=== PATIENT | female | born 1935 | race Caucasian/White ===

== ENCOUNTER 2018-12-04 15:23 | Inpatient (IN) ==
[2018-12-04] MEDS ORDERED: ONDANSETRON 4 MG/2 ML VIAL IV PRN (15:24)
[2018-12-04] MEDS ORDERED: ACETAMINOPHEN 325 MG TABLET PO PRN (15:24)
[2018-12-04] MEDS ORDERED: DEXTROSE 50% 25 GM/50 ML VIAL IV PRN (15:24)
[2018-12-04] MEDS ORDERED: GLUCAGON 1 MG VIAL IM PRN (15:24)
[2018-12-04] MEDS ORDERED: ENOXAPARIN 30 MG/0.3 ML SYRINGE SUBCUT SCH (15:30)
[2018-12-04] MEDS: INSULIN LISPRO 100 UNIT/ML SUBCUT SCH ×2 (17:02→21:30)
[2018-12-04 17:09] LABS: Basophils % 0.3 % (0.0-0.8); Eosinophils % 0.6 % (0.00-10.9); Hematocrit 32.4 VOL% (35.7-47.0); Hemoglobin 9.9 GM/DL (12.0-16.0); Immature Granulocytes % 0.3 %; Immature Granulocytes Absolute 0.02 #; Lymphocytes # 1.5 10*3/uL (1.4-4.0); Lymphocytes % 22.2 % (21.3-54.2); Mean Corpuscular HGB Conc 30.6 GM/DL (32-36); Mean Corpuscular Hemoglobin 28 PG (27-34); Mean Platelet Volume 10.7 FL (9.6-12.0); Monocytes # 0.3 10*3/uL (0.11-0.8); Monocytes % 4.9 % (1.7-12.7); Neutrophils # 4.9 10*3/uL (1.4-7.4); Neutrophils % 71.7 % (38.7-73.9); Platelet Count 248 T/CUMM (130-400); Red Blood Count 3.52 MC/CUMM (3.8-5.5); White Blood Count 6.8 T/CUMM (4-12)
[2018-12-04 17:42] LABS: Alanine Aminotransferase 14 U/L (13-56); Albumin 2.7 G/DL (3.4-5.0); Alkaline Phosphatase 57 U/L (45-117); Aspartate Amino Transferase 8 U/L (0-37); Bilirubin,Total < 0.39 MG/DL (0.2-1.0); Blood Urea Nitrogen 26 MG/DL (7-18); Glucose 286 MG/DL (74-106); Osmolality,Calculated 287.8 MOS/KG (273-304); Potassium 4.1 MMOL/L (3.5-5.1); Sodium 137 MMOL/L (136-145); Total Protein 7.2 G/DL (6.4-8.3)
[2018-12-04] MEDS: CYANOCOBALAMIN 500 MCG TABLET PO SCH (18:03)
[2018-12-04] MEDS: SODIUM CHLORIDE 0.45% 1,000 ML IV SCH (18:03)
[2018-12-04 18:50] LABS: Apearance,Urine CLOUDY (Clear); Bilirubin,Urine Negative (Negative); Blood, Urine Negative (Negative); Glucose,Urine (UA) 150 mg/dL (Negative); Ketones,Urine Negative (Negative); Mucus,Urine Occasional /LPF (Occasional); Nitrite,Urine Negative (Negative); Protein,Urine Negative; RBC,Urine 4 /HPF (0-4); Squamous Epithelial Cell,Urine Occasional /HPF (0-10); Urine Color Yellow (Yellow); Urine Specific Gravity 1.016 (1.001-1.035); Urine Urobilinogen < 2.0 EU/DL (0.2-1.0); WBC,Urine 141 /HPF (0-6)
[2018-12-04] MEDS ORDERED: MAGNESIUM OXIDE 400 MG TABLET PO SCH (21:00)
[2018-12-04] MEDS ORDERED: NITROGLYCERIN 0.2 MG/HR PATCH TRANSDERM PRN (21:00)
[2018-12-04] MEDS: ATORVASTATIN 40 MG TABLET PO SCH (21:23)
[2018-12-04] MEDS: CARVEDILOL 6.25 MG TABLET PO SCH (21:23)
[2018-12-04] MEDS: GLIMEPIRIDE 4 MG TABLET PO SCH (21:24)
[2018-12-05 05:30] LABS: Risk Ratio 1.8; VLDL CHOLESTEROL 35.2 MG/DL
[2018-12-05] MEDS: INSULIN LISPRO 100 UNIT/ML SUBCUT SCH ×4 (08:14→21:16)
[2018-12-05] MEDS ORDERED: DILTIAZEM CD 180 MG CAPSULE PO SCH (09:00)
[2018-12-05] MEDS ORDERED: PANTOPRAZOLE 40 MG TABLET PO SCH (09:00)
[2018-12-05] MEDS ORDERED: ESTROGENS (CONJ) 0.625 MG TABLET PO SCH (09:00)
[2018-12-05] MEDS: DIPHENOXYLATE/ATROPINE 2.5-0.025 MG TABLET PO PRN ×2 (09:08→21:13)
[2018-12-05] MEDS: CARVEDILOL 6.25 MG TABLET PO SCH ×2 (09:08→21:12)
[2018-12-05] MEDS: GLIMEPIRIDE 4 MG TABLET PO SCH ×2 (09:08→21:12)
[2018-12-05] MEDS: RIVAROXABAN 15 MG TABLET PO SCH (09:08)
[2018-12-05] MEDS: MAGNESIUM OXIDE 400 MG TABLET PO SCH ×2 (12:01→21:11)
[2018-12-05] MEDS: CYANOCOBALAMIN 500 MCG TABLET PO SCH (16:33)
[2018-12-05] MEDS ORDERED: cefTRIAXone 1,000 MG in SYRINGE 1 EACH IV SCH (18:00)
[2018-12-05] MEDS: ATORVASTATIN 40 MG TABLET PO SCH (21:11)
[2018-12-05] MEDS: SODIUM CHLORIDE 0.45% 1,000 ML IV SCH (21:17)
[2018-12-06 08:15] VITALS: BP 143/70
[2018-12-06] MEDS: INSULIN LISPRO 100 UNIT/ML SUBCUT SCH (09:37)
[2018-12-06] MEDS: RIVAROXABAN 15 MG TABLET PO SCH (09:38)
== END 2018-12-06 09:20 | disposition home or self-care (01) | DRG 948 ==
LOC: N.2E 15:48
PROVIDERS: ADMIT Family Medicine; ATTEND Family Medicine

== ENCOUNTER 2019-10-28 21:56 | Inpatient (IN) ==
[2019-10-28] MEDS ORDERED: PANTOPRAZOLE 40 MG VIAL IV STA (22:32)
[2019-10-28] MEDS ORDERED: SODIUM CHLORIDE 0.9% 500 ML IV STA (22:32)
[2019-10-28] MEDS ORDERED: ONDANSETRON 4 MG/2 ML VIAL IV STA (22:32)
[2019-10-28 22:41] LABS: Basophils % 0.2 % (0.0-0.8); Eosinophils % 0.4 % (0.00-10.9); Hematocrit 34.5 VOL% (35.7-47.0); Hemoglobin 10.9 GM/DL (12.0-16.0); Immature Granulocytes % 0.7 %; Immature Granulocytes Absolute 0.06 #; Lymphocytes # 1.1 10*3/uL (1.4-4.0); Lymphocytes % 13.1 % (21.3-54.2); Mean Corpuscular HGB Conc 31.6 GM/DL (32-36); Mean Corpuscular Volume 85.4 FL (87-102); Mean Platelet Volume 10.8 FL (9.6-12.0); Monocytes % 6.4 % (1.7-12.7); Neutrophils % 79.2 % (38.7-73.9); Platelet Count 219 T/CUMM (130-400); Red Blood Count 4.04 MC/CUMM (3.8-5.5); Red Cell Distribution Width 13.6 % (9.3-17.3); White Blood Count 8.6 T/CUMM (4-12)
[2019-10-28 22:46] LABS: INR 1.3; PT Patient Result 13.7 SECS (9.6-12.2)
[2019-10-28 22:55] LABS: Alanine Aminotransferase < 6 U/L (13-56); Albumin 2.6 G/DL (3.4-5.0); Alkaline Phosphatase 51 U/L (45-117); Aspartate Amino Transferase 11 U/L (0-37); Blood Urea Nitrogen 28 MG/DL (7-18); Calcium 8.6 MG/DL (8.5-10.1); Estimated Glom Filtration Rate 32 ML/MIN; Glucose 183 MG/DL (74-106); Osmolality,Calculated 287.5 MOS/KG (273-304); Total Protein 6.7 G/DL (6.4-8.3)
[2019-10-28] MEDS ORDERED: MAGNESIUM SULF RIDER 2 GM in PREMIX 1 EACH IV STA (23:05)
[2019-10-29] MEDS ORDERED: GLUCAGON 1 MG VIAL IM PRN (01:48)
[2019-10-29] MEDS ORDERED: DEXTROSE 50% 25 GM/50 ML VIAL IV PRN (01:48)
[2019-10-29] MEDS ORDERED: ONDANSETRON 4 MG/2 ML VIAL IV PRN (01:48)
[2019-10-29] MEDS: SODIUM CHLORIDE 0.9% 1,000 ML IV SCH ×3 (02:28→22:53)
[2019-10-29] MEDS: CIPROFLOXACIN INJ 400 MG in PREMIX 1 EACH IV SCH ×2 (02:29→15:07)
[2019-10-29] MEDS: metroNIDAZOLE INJ 500 MG in PREMIX 1 EACH IV SCH ×3 (03:42→18:55)
[2019-10-29] MEDS: INSULIN REGULAR 100 UNIT/ML SUBCUT SCH ×4 (06:26→23:47)
[2019-10-29 07:11] LABS: Basophils % 0.1 % (0.0-0.8); Eosinophils # 0.1 10*3/uL (0.0-0.87); Eosinophils % 0.7 % (0.00-10.9); Hematocrit 31.3 VOL% (35.7-47.0); Immature Granulocytes % 0.4 %; Immature Granulocytes Absolute 0.03 #; Lymphocytes # 1.5 10*3/uL (1.4-4.0); Lymphocytes % 21.3 % (21.3-54.2); Mean Corpuscular HGB Conc 31.9 GM/DL (32-36); Mean Corpuscular Volume 84.6 FL (87-102); Mean Platelet Volume 10.5 FL (9.6-12.0); Monocytes % 8.6 % (1.7-12.7); Neutrophils % 68.9 % (38.7-73.9); Platelet Count 188 T/CUMM (130-400); Red Cell Distribution Width 13.8 % (9.3-17.3)
[2019-10-29 07:31] LABS: Alanine Aminotransferase < 6 U/L (13-56); Albumin 2.3 G/DL (3.4-5.0); Alkaline Phosphatase 47 U/L (45-117); Aspartate Amino Transferase 7 U/L (0-37); Bilirubin,Total < 0.39 MG/DL (0.2-1.0); Blood Urea Nitrogen 21 MG/DL (7-18); Calcium 8.4 MG/DL (8.5-10.1); Estimated Glom Filtration Rate 38 ML/MIN; Glucose 164 MG/DL (74-106); Osmolality,Calculated 285.4 MOS/KG (273-304)
[2019-10-29] MEDS ORDERED: NITROGLYCERIN 0.2 MG/HR PATCH TRANSDERM PRN (08:28)
[2019-10-29] MEDS ORDERED: DIPHENOXYLATE/ATROPINE 2.5-0.025 MG TABLET PO PRN (08:28)
[2019-10-29 09:00] LABS: Hematocrit 31.6 VOL% (35.7-47.0); Hemoglobin 10.2 GM/DL (12.0-16.0)
[2019-10-29] MEDS ORDERED: CARBIDOPA LEVODOPA PO SCH (09:00)
[2019-10-29] MEDS: CHOLECALCIFEROL 1,000 UNIT TABLET PO SCH (09:35)
[2019-10-29] MEDS: DILTIAZEM CD 180 MG CAPSULE PO SCH (09:35)
[2019-10-29] MEDS: PANTOPRAZOLE 40 MG VIAL IV SCH (09:36)
[2019-10-29] MEDS: MAGNESIUM OXIDE 400 MG TABLET PO SCH ×2 (09:36→20:43)
[2019-10-29] MEDS: ESTROGENS (CONJ) 0.625 MG TABLET PO SCH (09:39)
[2019-10-29] MEDS: POTASSIUM CHLORIDE RIDER 10 MEQ in PREMIX 1 EACH IV PRN ×5 (09:43→22:53)
[2019-10-29] MEDS: ASCORBIC ACID 500 MG TABLET PO SCH ×2 (14:21→20:43)
[2019-10-29 15:30] LABS: Hematocrit 32.2 VOL% (35.7-47.0); Hemoglobin 10.2 GM/DL (12.0-16.0)
[2019-10-29] MEDS: carvediloL 6.25 MG TABLET PO SCH (16:29)
[2019-10-29] MEDS: CYANOCOBALAMIN 500 MCG TABLET PO SCH (20:43)
[2019-10-29] MEDS: ATORVASTATIN 40 MG TABLET PO SCH (20:43)
[2019-10-29 22:13] LABS: Hematocrit 30.4 VOL% (35.7-47.0); Hemoglobin 9.6 GM/DL (12.0-16.0)
[2019-10-30] MEDS: CIPROFLOXACIN INJ 400 MG in PREMIX 1 EACH IV SCH ×2 (01:44→14:52)
[2019-10-30] MEDS: metroNIDAZOLE INJ 500 MG in PREMIX 1 EACH IV SCH ×3 (03:30→18:23)
[2019-10-30 04:09] LABS: Hematocrit 28.8 VOL% (35.7-47.0); Hemoglobin 9.2 GM/DL (12.0-16.0)
[2019-10-30] MEDS: INSULIN REGULAR 100 UNIT/ML SUBCUT SCH ×4 (06:45→23:10)
[2019-10-30] MEDS: SODIUM CHLORIDE 0.9% 1,000 ML IV SCH ×3 (06:48→23:18)
[2019-10-30] MEDS: PANTOPRAZOLE 40 MG VIAL IV SCH (09:40)
[2019-10-30] MEDS: ESTROGENS (CONJ) 0.625 MG TABLET PO SCH (09:40)
[2019-10-30] MEDS: DILTIAZEM CD 180 MG CAPSULE PO SCH (09:41)
[2019-10-30] MEDS: MAGNESIUM OXIDE 400 MG TABLET PO SCH ×2 (09:41→20:42)
[2019-10-30] MEDS: ASCORBIC ACID 500 MG TABLET PO SCH ×2 (09:41→20:42)
[2019-10-30] MEDS: CHOLECALCIFEROL 1,000 UNIT TABLET PO SCH (09:41)
[2019-10-30] MEDS: CARBIDOPA LEVODOPA PO SCH ×3 (09:42→18:22)
[2019-10-30] MEDS: carvediloL 6.25 MG TABLET PO SCH ×2 (09:42→18:21)
[2019-10-30] MEDS: FLECAINIDE 50 MG TABLET PO SCH ×2 (09:42→20:42)
[2019-10-30] MEDS: ATORVASTATIN 40 MG TABLET PO SCH (20:42)
[2019-10-30] MEDS: CYANOCOBALAMIN 500 MCG TABLET PO SCH (20:49)
[2019-10-31] MEDS: CIPROFLOXACIN INJ 400 MG in PREMIX 1 EACH IV SCH (01:35)
[2019-10-31] MEDS: metroNIDAZOLE INJ 500 MG in PREMIX 1 EACH IV SCH ×2 (02:40→10:32)
[2019-10-31] MEDS: INSULIN REGULAR 100 UNIT/ML SUBCUT SCH (05:25)
[2019-10-31 06:38] LABS: Hematocrit 31.8 VOL% (35.7-47.0); Hemoglobin 10.1 GM/DL (12.0-16.0)
[2019-10-31 07:02] LABS: Calcium 8.4 MG/DL (8.5-10.1); Osmolality,Calculated 284.3 MOS/KG (273-304)
[2019-10-31] MEDS: carvediloL 6.25 MG TABLET PO SCH (08:17)
[2019-10-31] MEDS: CARBIDOPA LEVODOPA PO SCH (08:18)
[2019-10-31] MEDS: DILTIAZEM CD 180 MG CAPSULE PO SCH (08:19)
[2019-10-31] MEDS: MAGNESIUM OXIDE 400 MG TABLET PO SCH (08:23)
[2019-10-31] MEDS: ESTROGENS (CONJ) 0.625 MG TABLET PO SCH (08:23)
[2019-10-31] MEDS: PANTOPRAZOLE 40 MG VIAL IV SCH (08:23)
[2019-10-31] MEDS: ASCORBIC ACID 500 MG TABLET PO SCH (08:24)
[2019-10-31] MEDS: FLECAINIDE 50 MG TABLET PO SCH (08:24)
[2019-10-31 08:25] VITALS: BP 127/61
[2019-10-31] MEDS: CHOLECALCIFEROL 1,000 UNIT TABLET PO SCH (08:25)
[2019-10-31] MEDS ORDERED: INFLUENZA VIRUS VACCINE 0.5 ML SYRINGE IM ONE (10:30)
== END 2019-10-31 11:13 | disposition home or self-care (01) | DRG 378 ==
LOC: EDBD → EDUNIT# → N.ED 21:56 → N.EDINP 10-29 00:22 → N.5E 10-29 00:40
PROVIDERS: ADMIT Family Medicine; ATTEND Family Medicine

== ENCOUNTER 2021-04-20 13:14 | Inpatient (IN) ==
[2021-04-20 14:05] LABS: Basophils % 0.3 % (0.0-0.8); Eosinophils % 0.1 % (0.00-10.9); Hematocrit 37.3 VOL% (35.7-47.0); Hemoglobin 12.1 GM/DL (12.0-16.0); Immature Granulocytes % 0.3 %; Immature Granulocytes Absolute 0.02 #; Lymphocytes % 14.1 % (21.3-54.2); Mean Corpuscular HGB Conc 32.4 GM/DL (32-36); Mean Corpuscular Volume 91.4 FL (87-102); Mean Platelet Volume 10.4 FL (9.6-12.0); Monocytes % 6.3 % (1.7-12.7); Neutrophils % 78.9 % (38.7-73.9); Platelet Count 210 T/CUMM (130-400); Red Blood Count 4.08 MC/CUMM (3.8-5.5); Red Cell Distribution Width 12.4 % (9.3-17.3); White Blood Count 7.1 T/CUMM (4-12)
[2021-04-20 14:19] LABS: Alanine Aminotransferase < 9 U/L (13-56); Albumin 3.3 G/DL (3.4-5.0); Alkaline Phosphatase 59 U/L (45-117); Aspartate Amino Transferase 13 U/L (0-37); Blood Urea Nitrogen 33 MG/DL (7-18); Calcium 10.8 MG/DL (8.5-10.1); Carbon Dioxide 26 MMOL/L (21-32); Estimated Glom Filtration Rate 27 ML/MIN; Glucose 208 MG/DL (74-106); Osmolality,Calculated 289.5 MOS/KG (273-304); Potassium 4.6 MMOL/L (3.5-5.1); Sodium 139 MMOL/L (136-145); Total Protein 6.9 G/DL (6.4-8.2)
[2021-04-20] MEDS ORDERED: ONDANSETRON 4 MG/2 ML VIAL IV STA (14:30)
[2021-04-20] MEDS ORDERED: MECLIZINE 12.5 MG TABLET PO STA (14:30)
[2021-04-20] MEDS ORDERED: SODIUM CHLORIDE 0.9% 1,000 ML IV STA (14:30)
[2021-04-20 14:48] LABS: Bilirubin,Urine Negative (Negative); Blood, Urine Negative (Negative); Glucose,Urine (UA) Negative (Negative); Hyaline Casts,Urine 4 /LPF (0-3); Ketones,Urine 5 mg/dL (Negative); Mucus,Urine Occasional /LPF (Occasional); Nitrite,Urine Negative (Negative); Protein,Urine 100 MG/DL; RBC,Urine 12 /HPF (0-4); Squamous Epithelial Cell,Urine Few /HPF (0-10); Urine Appearance Slightly Hazy (Clear); Urine Color Yellow (Yellow); Urine Specific Gravity 1.011 (1.001-1.035); Urine Urobilinogen < 2.0 EU/DL (0.2-1.0)
[2021-04-20] MEDS ORDERED: MECLIZINE 25 MG TABLET ONE (15:03)
[2021-04-20] MEDS ORDERED: FLUCONAZOLE 100 MG TABLET PO STA (15:43)
[2021-04-20] MEDS ORDERED: ONDANSETRON 4 MG/2 ML VIAL IV PRN (16:11)
[2021-04-20] MEDS ORDERED: DIAZEPAM 2 MG TABLET PO PRN (17:11)
[2021-04-20] MEDS ORDERED: DIPHENOXYLATE/ATROPINE 2.5-0.025 MG TABLET PO PRN (17:12)
[2021-04-20] MEDS: SODIUM CHLORIDE 0.9% 1,000 ML IV SCH (17:29)
[2021-04-20] MEDS: cefTRIAXone 1,000 MG in SODIUM CHLORIDE 0.9% 100 ML IV SCH (18:22)
[2021-04-20] MEDS: ASCORBIC ACID 500 MG TABLET PO SCH (20:43)
[2021-04-20] MEDS: CYANOCOBALAMIN 500 MCG TABLET PO SCH (20:43)
[2021-04-20] MEDS: GLIMEPIRIDE 4 MG TABLET PO SCH (20:43)
[2021-04-20] MEDS: CARBIDOPA LEVODOPA PO SCH (20:53)
[2021-04-20] MEDS: DOCUSATE SODIUM 100 MG CAPSULE PO SCH (20:53)
[2021-04-20] MEDS: MAGNESIUM OXIDE 400 MG TABLET PO SCH (20:54)
[2021-04-21] MEDS: MICONAZOLE 2% VAG CREAM 45 GM TUBE VAG SCH ×2 (00:01→21:14)
[2021-04-21] MEDS: SODIUM CHLORIDE 0.9% 1,000 ML IV SCH ×4 (00:05→19:23)
[2021-04-21] MEDS: MAGNESIUM OXIDE 400 MG TABLET PO SCH ×2 (09:32→21:14)
[2021-04-21] MEDS: CHOLECALCIFEROL 1,000 UNIT TABLET PO SCH (09:32)
[2021-04-21] MEDS: ASCORBIC ACID 500 MG TABLET PO SCH ×2 (09:33→21:13)
[2021-04-21] MEDS: carvediloL 6.25 MG TABLET PO SCH ×2 (09:33→16:42)
[2021-04-21] MEDS: DILTIAZEM CD 180 MG CAPSULE PO SCH (09:33)
[2021-04-21] MEDS ORDERED: NITROGLYCERIN SL 0.4 MG TABLET SL PRN (09:33)
[2021-04-21] MEDS: PHENAZOPYRIDINE 95 MG TABLET PO SCH ×3 (09:33→16:46)
[2021-04-21] MEDS: GLIMEPIRIDE 4 MG TABLET PO SCH ×2 (09:33→16:42)
[2021-04-21] MEDS: PANTOPRAZOLE 40 MG TABLET PO SCH (09:33)
[2021-04-21] MEDS ORDERED: DILTIAZEM 50 MG/10 ML VIAL IV ONE (10:04)
[2021-04-21] MEDS ORDERED: DILTIAZEM INJ 100 MG in SODIUM CHLORIDE 0.9% 100 ML IV SCH (10:30)
[2021-04-21 10:33] LABS: Basophils % 0.2 % (0.0-0.8); Eosinophils # 0.1 10*3/uL (0.0-0.87); Hemoglobin 11.2 GM/DL (12.0-16.0); Immature Granulocytes % 0.4 %; Immature Granulocytes Absolute 0.03 #; Lymphocytes # 2.4 10*3/uL (1.4-4.0); Lymphocytes % 28.5 % (21.3-54.2); Mean Corpuscular Volume 92.1 FL (87-102); Mean Platelet Volume 10.4 FL (9.6-12.0); Monocytes % 9.6 % (1.7-12.7); Neutrophils % 60.3 % (38.7-73.9); Platelet Count 198 T/CUMM (130-400); Red Cell Distribution Width 12.4 % (9.3-17.3); White Blood Count 8.3 T/CUMM (4-12)
[2021-04-21] MEDS ORDERED: MAGNESIUM SULF RIDER 4 GM/100 ML PREMIX IV PRN (10:42)
[2021-04-21] MEDS ORDERED: MAGNESIUM SULF RIDER 2 GM/50 ML PREMIX IV PRN (10:42)
[2021-04-21] MEDS: PREMARIN 0.625 MG PO SCH (10:49)
[2021-04-21] MEDS: DOCUSATE SODIUM 100 MG CAPSULE PO SCH ×2 (10:49→21:14)
[2021-04-21 10:50] LABS: Calcium 9.5 MG/DL (8.5-10.1); Potassium 3.8 MMOL/L (3.5-5.1)
[2021-04-21] MEDS: CARBIDOPA LEVODOPA PO SCH ×3 (11:26→16:42)
[2021-04-21] MEDS: cefTRIAXone 1,000 MG in SODIUM CHLORIDE 0.9% 100 ML IV SCH (16:47)
[2021-04-21] MEDS ORDERED: AMIODARONE 200 MG TABLET PO SCH (21:00)
[2021-04-21] MEDS: CYANOCOBALAMIN 500 MCG TABLET PO SCH (21:13)
[2021-04-21] MEDS: ATORVASTATIN 40 MG TABLET PO SCH (21:14)
[2021-04-22] MEDS: SODIUM CHLORIDE 0.9% 1,000 ML IV SCH ×2 (03:23→17:35)
[2021-04-22 05:01] LABS: Basophils % 0.1 % (0.0-0.8); Eosinophils # 0.1 10*3/uL (0.0-0.87); Eosinophils % 1.3 % (0.00-10.9); Hematocrit 30.9 VOL% (35.7-47.0); Hemoglobin 10.2 GM/DL (12.0-16.0); Immature Granulocytes % 0.4 %; Immature Granulocytes Absolute 0.03 #; Lymphocytes # 1.4 10*3/uL (1.4-4.0); Lymphocytes % 19.3 % (21.3-54.2); Mean Platelet Volume 9.9 FL (9.6-12.0); Monocytes % 10.9 % (1.7-12.7); Platelet Count 152 T/CUMM (130-400); Red Blood Count 3.36 MC/CUMM (3.8-5.5); Red Cell Distribution Width 12.4 % (9.3-17.3); White Blood Count 7.5 T/CUMM (4-12)
[2021-04-22 05:07] LABS: Calcium 8.7 MG/DL (8.5-10.1); Potassium 3.4 MMOL/L (3.5-5.1)
[2021-04-22] MEDS ORDERED: POTASSIUM CHLORIDE 20 MEQ TABLET PO PRN (06:36)
[2021-04-22] MEDS: carvediloL 6.25 MG TABLET PO SCH ×2 (08:55→17:35)
[2021-04-22] MEDS: CARBIDOPA LEVODOPA PO SCH ×3 (08:55→17:39)
[2021-04-22] MEDS: GLIMEPIRIDE 4 MG TABLET PO SCH ×2 (08:55→17:35)
[2021-04-22] MEDS: PHENAZOPYRIDINE 95 MG TABLET PO SCH ×3 (08:55→17:36)
[2021-04-22] MEDS: MAGNESIUM OXIDE 400 MG TABLET PO SCH ×2 (08:56→20:45)
[2021-04-22] MEDS: DILTIAZEM CD 180 MG CAPSULE PO SCH (08:56)
[2021-04-22] MEDS: ASCORBIC ACID 500 MG TABLET PO SCH ×2 (08:57→20:46)
[2021-04-22] MEDS: PANTOPRAZOLE 40 MG TABLET PO SCH (08:57)
[2021-04-22] MEDS: CHOLECALCIFEROL 1,000 UNIT TABLET PO SCH (08:58)
[2021-04-22] MEDS: PREMARIN 0.625 MG PO SCH (09:47)
[2021-04-22] MEDS: DOCUSATE SODIUM 100 MG CAPSULE PO SCH ×2 (09:47→20:45)
[2021-04-22] MEDS: POTASSIUM CHLORIDE 20 MEQ TABLET PO PRN ×3 (09:54→20:45)
[2021-04-22] MEDS: ACETAMINOPHEN 325 MG TABLET PO PRN ×2 (10:00→21:42)
[2021-04-22] MEDS ORDERED: TUBERCULIN SKIN TEST 0.1 ML SYRINGE INTRADERM ONE (12:30)
[2021-04-22] MEDS ORDERED: INSULIN LISPRO 100 UNIT/ML SUBCUT ONE (16:47)
[2021-04-22] MEDS: metFORMIN 500 MG TABLET PO SCH (16:56)
[2021-04-22] MEDS: cefTRIAXone 1,000 MG in SODIUM CHLORIDE 0.9% 100 ML IV SCH (17:36)
[2021-04-22] MEDS: CYANOCOBALAMIN 500 MCG TABLET PO SCH (20:45)
[2021-04-22] MEDS: ATORVASTATIN 40 MG TABLET PO SCH (20:46)
[2021-04-22] MEDS: MICONAZOLE 2% VAG CREAM 45 GM TUBE VAG SCH (20:51)
[2021-04-23] MEDS: SODIUM CHLORIDE 0.9% 1,000 ML IV SCH ×5 (02:12→20:20)
[2021-04-23 04:42] LABS: Basophils % 0.2 % (0.0-0.8); Eosinophils # 0.1 10*3/uL (0.0-0.87); Eosinophils % 1.1 % (0.00-10.9); Hemoglobin 9.2 GM/DL (12.0-16.0); Immature Granulocytes % 0.7 %; Immature Granulocytes Absolute 0.06 #; Lymphocytes # 1.8 10*3/uL (1.4-4.0); Lymphocytes % 20.9 % (21.3-54.2); Mean Corpuscular HGB Conc 31.7 GM/DL (32-36); Mean Corpuscular Volume 93.5 FL (87-102); Mean Platelet Volume 10.3 FL (9.6-12.0); Monocytes % 8.3 % (1.7-12.7); Neutrophils % 68.8 % (38.7-73.9); Platelet Count 139 T/CUMM (130-400); Red Cell Distribution Width 12.5 % (9.3-17.3); White Blood Count 8.7 T/CUMM (4-12)
[2021-04-23 05:07] LABS: Calcium 8.1 MG/DL (8.5-10.1); Osmolality,Calculated 283.3 MOS/KG (273-304); Potassium 4.2 MMOL/L (3.5-5.1)
[2021-04-23] MEDS: PREMARIN 0.625 MG PO SCH (09:00)
[2021-04-23] MEDS: carvediloL 6.25 MG TABLET PO SCH ×2 (09:49→17:22)
[2021-04-23] MEDS: GLIMEPIRIDE 4 MG TABLET PO SCH ×2 (09:49→17:22)
[2021-04-23] MEDS: PHENAZOPYRIDINE 95 MG TABLET PO SCH ×3 (09:50→17:22)
[2021-04-23] MEDS: metFORMIN 500 MG TABLET PO SCH ×2 (09:50→17:22)
[2021-04-23] MEDS: MAGNESIUM OXIDE 400 MG TABLET PO SCH ×2 (09:51→20:23)
[2021-04-23] MEDS: DOCUSATE SODIUM 100 MG CAPSULE PO SCH ×2 (09:51→20:23)
[2021-04-23] MEDS: AMIODARONE 200 MG TABLET PO SCH (09:51)
[2021-04-23] MEDS: DILTIAZEM CD 180 MG CAPSULE PO SCH (09:51)
[2021-04-23] MEDS: PANTOPRAZOLE 40 MG TABLET PO SCH (09:52)
[2021-04-23] MEDS: CHOLECALCIFEROL 1,000 UNIT TABLET PO SCH (09:52)
[2021-04-23] MEDS: ASCORBIC ACID 500 MG TABLET PO SCH ×2 (09:52→20:23)
[2021-04-23] MEDS: CARBIDOPA LEVODOPA PO SCH ×3 (09:53→17:23)
[2021-04-23] MEDS: cefTRIAXone 1,000 MG in SODIUM CHLORIDE 0.9% 100 ML IV SCH (17:24)
[2021-04-23] MEDS: ATORVASTATIN 40 MG TABLET PO SCH (20:23)
[2021-04-23] MEDS: MICONAZOLE 2% VAG CREAM 45 GM TUBE VAG SCH (20:24)
[2021-04-23] MEDS: CYANOCOBALAMIN 500 MCG TABLET PO SCH (20:25)
[2021-04-24] MEDS: SODIUM CHLORIDE 0.9% 1,000 ML IV SCH (03:53)
[2021-04-24 05:36] LABS: Basophils % 0.2 % (0.0-0.8); Eosinophils # 0.2 10*3/uL (0.0-0.87); Eosinophils % 1.7 % (0.00-10.9); Hemoglobin 8.8 GM/DL (12.0-16.0); Immature Granulocytes % 0.9 %; Immature Granulocytes Absolute 0.08 #; Lymphocytes # 1.4 10*3/uL (1.4-4.0); Lymphocytes % 14.9 % (21.3-54.2); Mean Corpuscular HGB Conc 31.4 GM/DL (32-36); Mean Corpuscular Volume 94.3 FL (87-102); Monocytes % 6.8 % (1.7-12.7); Neutrophils % 75.5 % (38.7-73.9); Platelet Count 144 T/CUMM (130-400); Red Blood Count 2.97 MC/CUMM (3.8-5.5); Red Cell Distribution Width 12.9 % (9.3-17.3); White Blood Count 9.3 T/CUMM (4-12)
[2021-04-24 05:55] LABS: Calcium 8.4 MG/DL (8.5-10.1); Potassium 4.2 MMOL/L (3.5-5.1)
[2021-04-24] MEDS ORDERED: FUROSEMIDE 40 MG/4 ML VIAL IV ONE (08:12)
[2021-04-24] MEDS: AMIODARONE 200 MG TABLET PO SCH (10:06)
[2021-04-24] MEDS: CHOLECALCIFEROL 1,000 UNIT TABLET PO SCH (10:06)
[2021-04-24] MEDS: carvediloL 6.25 MG TABLET PO SCH ×2 (10:06→17:00)
[2021-04-24] MEDS: DILTIAZEM CD 180 MG CAPSULE PO SCH (10:06)
[2021-04-24] MEDS: metFORMIN 500 MG TABLET PO SCH ×2 (10:06→17:00)
[2021-04-24] MEDS: GLIMEPIRIDE 4 MG TABLET PO SCH ×2 (10:07→17:00)
[2021-04-24] MEDS: DOCUSATE SODIUM 100 MG CAPSULE PO SCH ×2 (10:07→21:30)
[2021-04-24] MEDS: MAGNESIUM OXIDE 400 MG TABLET PO SCH ×2 (10:07→21:31)
[2021-04-24] MEDS: PHENAZOPYRIDINE 95 MG TABLET PO SCH ×3 (10:07→17:00)
[2021-04-24] MEDS: ASCORBIC ACID 500 MG TABLET PO SCH ×2 (10:07→21:31)
[2021-04-24] MEDS: PANTOPRAZOLE 40 MG TABLET PO SCH (10:07)
[2021-04-24] MEDS: CARBIDOPA LEVODOPA PO SCH ×3 (10:08→16:00)
[2021-04-24] MEDS: SODIUM CHLORIDE 0.45% 1,000 ML IV SCH (10:10)
[2021-04-24] MEDS: PREMARIN 0.625 MG PO SCH (10:29)
[2021-04-24] MEDS: cefTRIAXone 1,000 MG in SODIUM CHLORIDE 0.9% 100 ML IV SCH (17:00)
[2021-04-24] MEDS: CYANOCOBALAMIN 500 MCG TABLET PO SCH (21:30)
[2021-04-24] MEDS: MICONAZOLE 2% VAG CREAM 45 GM TUBE VAG SCH (21:32)
[2021-04-24] MEDS: ATORVASTATIN 40 MG TABLET PO SCH (21:32)
[2021-04-25] MEDS: SODIUM CHLORIDE 0.45% 1,000 ML IV SCH (03:32)
[2021-04-25 07:19] LABS: Basophils % 0.1 % (0.0-0.8); Eosinophils # 0.2 10*3/uL (0.0-0.87); Eosinophils % 2.2 % (0.00-10.9); Hematocrit 28.4 VOL% (35.7-47.0); Hemoglobin 8.9 GM/DL (12.0-16.0); Immature Granulocytes % 0.7 %; Immature Granulocytes Absolute 0.05 #; Lymphocytes # 1.4 10*3/uL (1.4-4.0); Lymphocytes % 19.3 % (21.3-54.2); Mean Corpuscular HGB Conc 31.3 GM/DL (32-36); Mean Corpuscular Volume 94.4 FL (87-102); Mean Platelet Volume 10.2 FL (9.6-12.0); Monocytes % 6.9 % (1.7-12.7); Neutrophils % 70.8 % (38.7-73.9); Platelet Count 164 T/CUMM (130-400); Red Blood Count 3.01 MC/CUMM (3.8-5.5); Red Cell Distribution Width 12.7 % (9.3-17.3); White Blood Count 7.4 T/CUMM (4-12)
[2021-04-25 07:34] LABS: Calcium 8.5 MG/DL (8.5-10.1); Potassium 3.9 MMOL/L (3.5-5.1)
[2021-04-25] MEDS: GLIMEPIRIDE 4 MG TABLET PO SCH ×2 (09:06→18:08)
[2021-04-25] MEDS: CHOLECALCIFEROL 1,000 UNIT TABLET PO SCH (09:06)
[2021-04-25] MEDS: carvediloL 6.25 MG TABLET PO SCH ×2 (09:07→18:08)
[2021-04-25] MEDS: AMIODARONE 200 MG TABLET PO SCH (09:07)
[2021-04-25] MEDS: PANTOPRAZOLE 40 MG TABLET PO SCH (09:08)
[2021-04-25] MEDS: DOCUSATE SODIUM 100 MG CAPSULE PO SCH ×2 (09:08→20:55)
[2021-04-25] MEDS: MAGNESIUM OXIDE 400 MG TABLET PO SCH ×2 (09:09→20:56)
[2021-04-25] MEDS: DILTIAZEM CD 180 MG CAPSULE PO SCH (09:09)
[2021-04-25] MEDS: PHENAZOPYRIDINE 95 MG TABLET PO SCH ×3 (09:10→18:08)
[2021-04-25] MEDS: CARBIDOPA LEVODOPA PO SCH ×3 (09:10→18:09)
[2021-04-25] MEDS: ASCORBIC ACID 500 MG TABLET PO SCH ×2 (09:10→20:56)
[2021-04-25] MEDS: metFORMIN 500 MG TABLET PO SCH ×2 (09:10→18:09)
[2021-04-25] MEDS: PREMARIN 0.625 MG PO SCH (09:11)
[2021-04-25 11:00] LABS: Basophils % 0.2 % (0.0-0.8); Eosinophils # 0.2 10*3/uL (0.0-0.87); Eosinophils % 2.7 % (0.00-10.9); Hematocrit 27.2 VOL% (35.7-47.0); Hemoglobin 8.9 GM/DL (12.0-16.0); Immature Granulocytes % 0.5 %; Immature Granulocytes Absolute 0.03 #; Lymphocytes # 1.1 10*3/uL (1.4-4.0); Lymphocytes % 17.1 % (21.3-54.2); Mean Corpuscular HGB Conc 32.7 GM/DL (32-36); Mean Corpuscular Volume 91.9 FL (87-102); Mean Platelet Volume 9.7 FL (9.6-12.0); Neutrophils % 72.5 % (38.7-73.9); Platelet Count 156 T/CUMM (130-400); Red Blood Count 2.96 MC/CUMM (3.8-5.5); Red Cell Distribution Width 12.7 % (9.3-17.3); White Blood Count 6.3 T/CUMM (4-12)
[2021-04-25] MEDS: cefTRIAXone 1,000 MG in SODIUM CHLORIDE 0.9% 100 ML IV SCH (18:06)
[2021-04-25] MEDS: MICONAZOLE 2% VAG CREAM 45 GM TUBE VAG SCH (20:56)
[2021-04-25] MEDS: ATORVASTATIN 40 MG TABLET PO SCH (20:56)
[2021-04-25] MEDS: CYANOCOBALAMIN 500 MCG TABLET PO SCH (20:56)
[2021-04-26] MEDS: SODIUM CHLORIDE 0.45% 1,000 ML IV SCH (04:39)
[2021-04-26 05:40] LABS: Basophils % 0.3 % (0.0-0.8); Eosinophils # 0.2 10*3/uL (0.0-0.87); Eosinophils % 3.2 % (0.00-10.9); Hemoglobin 9.1 GM/DL (12.0-16.0); Immature Granulocytes % 0.6 %; Immature Granulocytes Absolute 0.04 #; Lymphocytes # 1.5 10*3/uL (1.4-4.0); Mean Corpuscular HGB Conc 31.4 GM/DL (32-36); Mean Corpuscular Volume 93.9 FL (87-102); Mean Platelet Volume 9.7 FL (9.6-12.0); Monocytes % 7.5 % (1.7-12.7); Neutrophils % 65.4 % (38.7-73.9); Platelet Count 180 T/CUMM (130-400); Red Blood Count 3.09 MC/CUMM (3.8-5.5); Red Cell Distribution Width 12.6 % (9.3-17.3); White Blood Count 6.5 T/CUMM (4-12)
[2021-04-26 05:55] LABS: Calcium 8.9 MG/DL (8.5-10.1); Osmolality,Calculated 287.1 MOS/KG (273-304); Potassium 4.3 MMOL/L (3.5-5.1)
[2021-04-26] MEDS: PANTOPRAZOLE 40 MG TABLET PO SCH (08:16)
[2021-04-26] MEDS: DOCUSATE SODIUM 100 MG CAPSULE PO SCH ×2 (08:16→08:19)
[2021-04-26] MEDS: GLIMEPIRIDE 4 MG TABLET PO SCH ×2 (08:16→16:25)
[2021-04-26] MEDS: PHENAZOPYRIDINE 95 MG TABLET PO SCH ×3 (08:16→16:30)
[2021-04-26] MEDS: CHOLECALCIFEROL 1,000 UNIT TABLET PO SCH (08:16)
[2021-04-26] MEDS: carvediloL 6.25 MG TABLET PO SCH ×2 (08:17→16:25)
[2021-04-26] MEDS: ASCORBIC ACID 500 MG TABLET PO SCH (08:17)
[2021-04-26] MEDS: metFORMIN 500 MG TABLET PO SCH ×2 (08:17→16:30)
[2021-04-26] MEDS: DILTIAZEM CD 180 MG CAPSULE PO SCH (08:17)
[2021-04-26] MEDS: MAGNESIUM OXIDE 400 MG TABLET PO SCH (08:17)
[2021-04-26] MEDS: AMIODARONE 200 MG TABLET PO SCH (08:18)
[2021-04-26] MEDS: PREMARIN 0.625 MG PO SCH (08:19)
[2021-04-26] MEDS: CARBIDOPA LEVODOPA PO SCH ×3 (08:29→16:26)
[2021-04-26 16:48] VITALS: BP 136/52
[2021-04-26] MEDS: cefTRIAXone 1,000 MG in SODIUM CHLORIDE 0.9% 100 ML IV SCH (17:39)
== END 2021-04-26 18:01 | disposition swing bed (61) | DRG 149 ==
LOC: N.EDINP 13:14 → N.ED 13:14 → N.EDINP 15:44 → N.3E 16:08 → N.ICU 04-21 10:40 → N.3E 04-21 18:16
PROVIDERS: ADMIT Family Medicine; ATTEND Family Medicine